=== PATIENT | female | born 1945 | race Caucasian/White ===

== ENCOUNTER 2017-02-27 11:04 | Outpatient (CLI) | payer MEDICARE ==
[2017-02-27 12:40] LABS: Hematocrit 40.3 % (36.0-47.0); Mean Platelet Volume 6.3 fL (7.4-10.4); Red Blood Cell (RBC) Count 4.47 mill/uL (4.20-5.40); White Blood Cell (WBC) Count 6.9 thou/uL (4.8-10.8)
[2017-02-27 12:46] LABS: PTT 31.8 SEC (22.9-36.1)
[2017-02-27 12:56] LABS: Prothrombin Time 12.5 SEC (12.0-14.7)
[2017-02-27 13:02] LABS: ALT (SGPT) 14 U/L (8-55); AST (SGOT) 12 U/L (5-34); Alkaline Phosphatase 94 U/L (40-150); Anion Gap 13 mmol/L (10-20); BUN (Urea Nitrogen) 13 mg/dL (9.8-20.1); Bilirubin, Total 0.3 mg/dL (0.2-1.2); Calc. Creatinine Clearance 0 mL/min (70-130); Carbon Dioxide 25 mmol/L (23-31); Chloride 105 mmol/L (98-107); Estimated GFR-MDRD 70; Globulin 2.8 g/dL (2.4-3.5); Protein, Total 7.2 g/dL (6.0-8.3)
--- NOTE | 2017-02-27 17:49 | RAD ---
CHEST TWO VIEWS: History: Pre op. FINDINGS: The cardiac silhouette and pulmonary vasculature are unremarkable. Mediastinum is midline. There is n o lobar consolidation, pneumothorax, or pleural fluid evident. IMPRESSION: No active cardiopulmonary abnormalities are demonstrated. POS: [facility]
== END 2017-02-27 11:05 | disposition home or self-care (01) ==
LOC: LABBT 11:04
PROVIDERS: ATTEND Internal Medicine
DX: Z01.818 Encounter for other preprocedural examination (principal); R94.39 Abnormal result of other cardiovascular function study
CPT/HCPCS: 71020; 80053; 85027; 85610; 85730; 93005; 93010

== ENCOUNTER 2017-02-28 06:42 | Day surgery (SDC) | payer MEDICARE ==
[2017-02-27 11:39] VITALS: BMI 27.4
[~2017-02-28 06:42] MED LIST: Iopamidol 370 76% 100 ML VIAL ONE
[2017-02-28] MEDS ORDERED: Nitroglycerin 100MG/250ML BOT 250 ML ONE (08:14)
[2017-02-28] MEDS ORDERED: Heparin 1000 UNIT/NS 500ML(OR) 1,000 ML ONE (08:14)
[2017-02-28] MEDS ORDERED: Verapamil 5 MG/2 ML VIAL ONE (08:14)
[2017-02-28] MEDS ORDERED: Heparin 10,000 UNITS/1 ML VIAL ONE (08:14)
[2017-02-28] MEDS ORDERED: Midazolam HCl 2 mg/2 ml Vial ONE (08:53)
[2017-02-28] MEDS ORDERED: Fentanyl 100 MCG/2 ML VIAL ONE (08:54)
== END 2017-02-28 12:30 | disposition home or self-care (01) ==
LOC: CCL 06:42
PROVIDERS: ATTEND Internal Medicine
DX: R93.1 Abnormal findings on diagnostic imaging of heart and coronary circulation (principal); I10 Essential (primary) hypertension
CPT/HCPCS: 80061; 93458; C1769; 36415; 99152; J1644; J2250; J3010

== ENCOUNTER 2017-07-28 10:34 | Outpatient (CLI) | payer MEDICARE ==
--- NOTE | 2017-07-28 14:01 | NM ---
MUGA SCAN: HISTORY: Evaluate for ejection fraction. Dilated cardiomyopathy. COMPARISON: None. TECHNIQUE: The patient is administered 27 mCi of tagged red blood cells. Imaging was obtained in multiple projections. FINDINGS: Ejection fraction is 39.5%. IMPRESSION: 39.5% ejection fraction. POS: [facility]
== END 2017-07-28 10:35 | disposition home or self-care (01) ==
LOC: NM 10:34
PROVIDERS: ATTEND Internal Medicine Cardiovascular Disease
DX: I42.0 Dilated cardiomyopathy (principal)
CPT/HCPCS: 78472; A9604